=== PATIENT | male | born 1945 | race Caucasian/White ===

== ENCOUNTER 2016-07-13 03:51 | Inpatient (IN) | payer MEDICARE, OTHER ==
[2016-07-13] MEDS ORDERED: PANTOPRAZOLE 80 MG in SODIUM CHLORIDE 0.9% 100ML 100 ML IV STA (04:04)
[2016-07-13] MEDS ORDERED: ONDANSETRON 4 MG/2 ML VIAL IVP STA (04:04)
[2016-07-13] MEDS ORDERED: SODIUM CHLORIDE 0.9% 1,000 ML IV ONE ×2 (04:04→12:15)
[2016-07-13] MEDS ORDERED: PANTOPRAZOLE 40 MG VIAL IVP STA (04:05)
[2016-07-13] MEDS ORDERED: ONDANSETRON 4 MG/2 ML VIAL ONE ×2 (04:29→04:43)
[2016-07-13] MEDS ORDERED: PANTOPRAZOLE 40 MG VIAL ONE (04:29)
[2016-07-13] MEDS ORDERED: SODIUM CHLORIDE FLUSH 0.9% 10 ML SYRINGE IVP PRN (05:29)
[2016-07-13] MEDS: SODIUM CHLORIDE 0.9% 1,000 ML IV SCH ×2 (08:35→17:34)
[2016-07-13] MEDS ORDERED: PANTOPRAZOLE 80 MG in SODIUM CHLORIDE 0.9% 100ML 100 ML IV ONE (09:00)
[2016-07-13] MEDS: POLYETHYLENE GLYCOL 3350 17 GM PACKET PO SCH (11:07)
[2016-07-13] MEDS: SODIUM CHLORIDE FLUSH 0.9% 10 ML SYRINGE IVP SCH ×3 (11:07→22:06)
[2016-07-13] MEDS ORDERED: PROPOFOL 200 MG/20 ML VIAL IVP ONE (12:20)
[2016-07-13] MEDS ORDERED: LIDOCAINE-MPF 2% 5 ML VIAL IM ONE (12:20)
[2016-07-13] MEDS ORDERED: BENZOCAINE/TETRACAINE/BUTAMBEN SPRAY 56 GM TOP ONE (12:25)
[2016-07-13] MEDS: PANTOPRAZOLE 80 MG in SODIUM CHLORIDE 0.9% 100ML 100 ML IV SCH (18:43)
[2016-07-13] MEDS ORDERED: GLUCAGON 1 MG/ML VIAL SUBQ PRN (19:52)
[2016-07-13] MEDS ORDERED: DEXTROSE GEL 37.5 GM TUBE PO PRN (19:52)
[2016-07-13] MEDS ORDERED: DEXTROSE 50% ABBOJECT 25 GM/50 ML SYRINGE IVP PRN (19:52)
[2016-07-13] MEDS ORDERED: DEXTROSE 5% 1,000 ML IV PRN (19:52)
[2016-07-13] MEDS: SUCRALFATE 1 GM/10 ML UDC PO SCH (22:06)
[2016-07-13] MEDS: INSULIN ASPART 300 UNIT/3 ML PEN SUBQ SCH (22:09)
[2016-07-14] MEDS: PANTOPRAZOLE 80 MG in SODIUM CHLORIDE 0.9% 100ML 100 ML IV SCH ×2 (04:32→14:46)
[2016-07-14] MEDS: SUCRALFATE 1 GM/10 ML UDC PO SCH ×4 (06:03→21:08)
[2016-07-14] MEDS: SODIUM CHLORIDE FLUSH 0.9% 10 ML SYRINGE IVP SCH ×3 (06:04→21:10)
[2016-07-14] MEDS: INSULIN ASPART 300 UNIT/3 ML PEN SUBQ SCH ×4 (08:53→21:08)
[2016-07-14] MEDS: POLYETHYLENE GLYCOL 3350 17 GM PACKET PO SCH (08:53)
[2016-07-14] MEDS ORDERED: CYCLOBENZAPRINE 10 MG TABLET PO PRN (17:26)
[2016-07-14] MEDS ORDERED: OLOPATADINE HCL EACHEYE PRN (17:26)
[2016-07-14] MEDS ORDERED: ZOLPIDEM 5 MG TABLET PO PRN (17:26)
[2016-07-14] MEDS ORDERED: HYDROcod/ACETAM 7.5 MG/325 MG TABLET PO PRN (17:26)
[2016-07-14] MEDS ORDERED: PIOGLITAZONE 15 MG TABLET PO SCH (21:00)
[2016-07-14] MEDS ORDERED: SUCRALFATE 1 GM/10 ML UDC PO SCH (22:00)
[2016-07-15] MEDS: SODIUM CHLORIDE FLUSH 0.9% 10 ML SYRINGE IVP SCH ×2 (04:43→13:11)
[2016-07-15] MEDS: PANTOPRAZOLE 80 MG in SODIUM CHLORIDE 0.9% 100ML 100 ML IV SCH (06:10)
[2016-07-15] MEDS: SUCRALFATE 1 GM/10 ML UDC PO SCH ×3 (06:10→17:16)
[2016-07-15] MEDS: POLYETHYLENE GLYCOL 3350 17 GM PACKET PO SCH (08:44)
[2016-07-15] MEDS: INSULIN ASPART 300 UNIT/3 ML PEN SUBQ SCH ×3 (08:45→17:17)
[2016-07-15] MEDS ORDERED: LISINOPRIL 5 MG TABLET PO SCH (09:00)
[2016-07-15] MEDS ORDERED: TAMSULOSIN 0.4 MG CAPSULE PO SCH (09:00)
[2016-07-15] MEDS ORDERED: PANTOPRAZOLE 40 MG TABLET PO SCH (16:00)
== END 2016-07-15 20:10 | disposition home or self-care (01) | DRG 378 ==
PROC: 0DB68ZX Excision of Stomach, Via Natural or Artificial Opening Endoscopic, Diagnostic (ICD-10-PCS; principal; 2016-07-13 12:15)
PROC: 30233L1 Transfusion of Nonautologous Fresh Plasma into Peripheral Vein, Percutaneous Approach (ICD-10-PCS; principal; 2016-07-13 12:15)
PROC: 30233N1 Transfusion of Nonautologous Red Blood Cells into Peripheral Vein, Percutaneous Approach (ICD-10-PCS; principal; 2016-07-13 12:15)
DX: K92.0 Hematemesis (principal); K29.61 Other gastritis with bleeding; D62 Acute posthemorrhagic anemia; Z87.442 Personal history of urinary calculi; H54.7 Unspecified visual loss; H91.90 Unspecified hearing loss, unspecified ear; K44.9 Diaphragmatic hernia without obstruction or gangrene; I10 Essential (primary) hypertension; E11.9 Type 2 diabetes mellitus without complications; Z79.84 Long term (current) use of oral hypoglycemic drugs; M16.11 Unilateral primary osteoarthritis, right hip; Z87.11 Personal history of peptic ulcer disease; I95.9 Hypotension, unspecified; T39.395A Adverse effect of other nonsteroidal anti-inflammatory drugs [NSAID], initial encounter; T39.015A Adverse effect of aspirin, initial encounter; T47.1X6A Underdosing of other antacids and anti-gastric-secretion drugs, initial encounter; Z91.138 Patient's unintentional underdosing of medication regimen for other reason; Y92.9 Unspecified place or not applicable; Z79.82 Long term (current) use of aspirin; Z79.899 Other long term (current) drug therapy; Z87.891 Personal history of nicotine dependence

== ENCOUNTER 2016-10-23 08:00 | Outpatient (CLI) | payer MEDICARE, OTHER ==
[2016-10-23 18:08] LABS: ALBUMIN/GLOBULIN RATIO 1.3 (1.0-2.2); BASOPHILS % (AUTO) 0.5 %; BILIRUBIN,TOTAL 0.6 mg/dL (0.2-1.0); BUN - BLOOD UREA NITROGEN 18 mg/dL (6-20); CALCIUM 9.1 mg/dL (8.5-10.3); CARBON DIOXIDE - CO2 27 mmol/L (21-32); CHLORIDE 106 mmol/L (101-111); CHOL/HDL RATIO 2.9 (<5.0); CHOLESTEROL 150 mg/dL; CREATININE 1.3 mg/dL (0.6-1.2); EOSINOPHILS # (AUTO) 0.1 10^3/uL (0.0-0.7); GFR - MDRD 54 (>89); GLUCOSE 104 mg/dL (70-100); HCT - HEMATOCRIT 35.3 % (42.0-52.0); HDL CHOLESTEROL 51 mg/dL; HGB - HEMOGLOBIN 11.7 g/dL (14.0-18.0); LDL/HDL RATIO 1.5 (<3.6); LYMPHOCYTES # (AUTO) 0.8 10^3/uL (1.5-3.5); LYMPHOCYTES % (AUTO) 19.7 %; MEAN CORPUSCULAR HEMOGLOBIN 30.1 pg (27.0-31.0); MEAN CORPUSCULAR HGB CONC 33.2 g/dL (32.0-36.0); MEAN CORPUSCULAR VOLUME 90.8 fL (80.0-94.0); MEAN PLATELET VOLUME 9.1 fL (7.4-11.4); MONOCYTES # (AUTO) 0.4 10^3/uL (0.0-1.0); MONOCYTES % (AUTO) 9.3 %; NEUTROPHILS # (AUTO) 2.8 10^3/uL (1.5-6.6); NEUTROPHILS % (AUTO) 68.5 %; NUCLEATED RED BLOOD CELLS AUTO 0.1 /100WBC; POTASSIUM 4.1 mmol/L (3.5-5.0); RED BLOOD COUNT 3.88 10^6/uL (4.70-6.10); RED CELL DISTRIBUTION WIDTH 23.5 % (12.0-15.0); SODIUM 139 mmol/L (135-145); TOTAL PROTEIN 6.9 g/dL (6.7-8.2); TRIGLYCERIDES 104 mg/dL; UNCORRECTED WHITE BLOOD COUNT 4.1 x10^3/uL; VLDL CHOLESTEROL 21 mg/dL; WHITE BLOOD COUNT 4.1 x10^3/uL (4.8-10.8)
[2016-10-23 18:35] LABS: HEMOGLOBIN A1C 0.39 g/dL
[2016-10-23 18:45] LABS: PLATELET ESTIMATE, MANUAL DECREASED (<130,000) (NORMAL)
== END 2016-10-23 08:01 | disposition home or self-care (01) ==
LOC: LAB.F 08:00
PROVIDERS: ATTEND Internal Medicine
DX: K25.0 Acute gastric ulcer with hemorrhage (principal); D62 Acute posthemorrhagic anemia
CPT/HCPCS: 36415; 80053; 80061; 83036; 84443; 85025

== ENCOUNTER 2018-03-24 15:11 | Outpatient (CLI) | payer MEDICARE, OTHER ==
--- NOTE | 2018-03-25 09:12 | XRAY Report ---
Reason: CHRONIC R HIP PAIN, NO TRAUMA Procedure Date: 03/24/2018 Accession Number: [id number] / [id number] Procedure: XR - Hip w/Pelvis 2-3V RT CPT Code: FULL RESULT: EXAM: RIGHT HIP AND PELVIS RADIOGRAPHY EXAM DATE: 03/24/2018 03:44 PM. HISTORY: CHRONIC R HIP PAIN, NO TRAUMA. COMPARISONS: Abdomen pelvis CT 06/13/2015. TECHNIQUE: 1 view of the pelvis and 1 view of the hip. FINDINGS: Bones: No fracture or bone lesion. Joints: There are mild osteophytes of the superior acetabula. No joint space narrowing. Soft Tissues: Vascular calcifications are noted. IMPRESSION: Mild bilateral hip osteoarthritis RADIA
== END 2018-03-24 15:12 | disposition home or self-care (01) ==
LOC: DI 15:11
PROVIDERS: ATTEND Family Medicine
DX: M16.0 Bilateral primary osteoarthritis of hip (principal)

== ENCOUNTER 2018-05-01 18:21 | Outpatient (CLI) | payer MEDICARE, OTHER ==
--- NOTE | 2018-05-02 07:29 | XRAY Report ---
Reason: NEW WHEEZING Procedure Date: 05/01/2018 Accession Number: [id number] / [id number] Procedure: XR - Chest 2 View X-Ray CPT Code: 66191 FULL RESULT: EXAM: CHEST RADIOGRAPHY EXAM DATE: 05/01/2018 06:50 PM. CLINICAL HISTORY: NEW WHEEZING. COMPARISON: None. TECHNIQUE: 2 views. FINDINGS: Lungs/Pleura: No focal opacities evident. No pleural effusion. No pneumothorax. Normal volumes. Mediastinum: Heart and mediastinal contours are unremarkable. IMPRESSION: No evidence of active pulmonary process RADIA
== END 2018-05-01 18:22 | disposition home or self-care (01) ==
LOC: DI 18:21
PROVIDERS: ATTEND Internal Medicine
DX: R06.2 Wheezing (principal)
CPT/HCPCS: 71046

== ENCOUNTER 2018-12-09 13:26 | Emergency (ER) | payer MEDICARE, OTHER ==
--- NOTE | 2018-12-09 14:07 | ED Physician Documentation ---
History of Present Illness - Stated complaint Stated Complaint: HEADACHE - Chief complaint Chief Complaint: Neuro - Additonal information Additional information: This is a 73-year-old male with a history of hypertension, diabetes, who presen ts with a headache for 5 days as well as some generalized fatigue. Patient began having a mild frontal headache 5 days ago associated with green nasal drainage and sinus pressure, this has continued and now radiates back posteriorly toward the scalp. He also has felt some generalized weakness, but denies any focal weakness, numbness, tingling, or new vision change. Patient denies fever, cough, chest pain, or shortness of breath. No abdominal pain, no vomiting. He has felt slightly nauseated at times. He has continued to eat, but less than usual. He typically does not get headaches. The pain is currently a 4 out of 10 constant and dull.It was gradual in onset. Review of Systems Constitutional: denies: Fever Nose: reports: Rhinorrhea / runny nose, Sinus pressure / pain Throat: denies: Sore throat Cardiac: denies: Chest pain / pressure Respiratory: denies: Dyspnea GI: reports: Nausea. denies: Abdominal Pain : denies: Dysuria Skin: denies: Rash Musculoskeletal: denies: Neck pain Neurologic: reports: Generalized weakness Endocrine: reports: Other (+ for diabetes) PD PAST MEDICAL HISTORY - Past Medical History Cardiovascular: Hypertension Respiratory: None Endocrine/Autoimmune: Type 2 diabetes GI: Other : Kidney stones HEENT: Chronic vision loss, Chronic hearing loss, Other Psych: None Musculoskeletal: None Derm: Eczema - Past Surgical History Past Surgical History: Yes General: Colonoscopy Ortho: Other HEENT: Cataracts, Detached retina repair - Present Medications Home Medications: Ambulatory Orders Medication Instructions Recorded Confirmed RX: Lisinopril 5 mg PO DAILY 12/23/13 07/13/16 RX: Simvastatin 20 mg PO DAILY 12/23/13 07/13/16 RX: Tamsulosin [Flomax] 0.4 mg PO DAILY 06/13/15 07/13/16 RX: L.acidoph/L.rhamn/B.bif/B.long 12.9 mg PO DAILY 06/28/15 07/13/16 [Probiotic Acidophilus Biobeads] RX: Potassium Gluconate 90 mg PO DAILY 06/28/15 07/13/16 RX: Atenolol 50 mg PO DAILY 09/19/15 07/14/16 RX: Cyclobenzaprine [Flexeril] 10 mg PO TID PRN 07/13/16 07/13/16 RX: Hydrocodone/Acetaminophen 0.5 - 1 tab PO Q6H PRN 07/13/16 07/13/16 [Hydrocodone-Acetamin 7.5-325] RX: Metformin HCl [Metformin ER 500 mg PO DAILY PM 07/13/16 07/13/16 Osmotic] RX: Metformin HCl [Metformin HCl 1,000 mg PO DAILY 07/13/16 07/13/16 ER] RX: Olopatadine HCl [Patanol] 5 ml OP PRN PRN 07/13/16 07/13/16 RX: Pioglitazone [Actos] 30 mg PO BID 07/13/16 07/14/16 RX: Polyethylene Glycol 3350 17 gm PO DAILY 07/13/16 07/13/16 [Glycolax] RX: Zolpidem [Ambien] 5 - 10 mg PO HS PRN 07/13/16 07/13/16 RX: Pantoprazole [Protonix] 40 mg PO BIDAC #60 tablet 07/15/16 RX: Sucralfate 1 gm PO TIDWM #90 tablet 07/15/16 Amox/Clav 875/125 [Augmentin] 1 each PO Q12H #28 tablet 12/09/18 RX: Acetaminophen 650 mg PO Q6HR #30 tablet 12/09/18 - Allergies Allergies/Adverse Reactions: Allergies Allergy/AdvReac Type Severity Reaction Status Date / Time No Known Drug Allergies Allergy Verified 06/28/15 08:39 - Social History Does the pt smoke?: No Smoking Status: Never smoker Does the pt drink ETOH?: No Does the pt have substance abuse?: No - Immunizations Immunizations are current?: Yes PD ED PE NORMAL - Vitals Vital signs reviewed: Yes - General General: Alert and oriented X 3, No acute distress - HEENT HEENT: Atraumatic, PERRL, Other (Mild facial tenderness near the midline maxillary region. No erythema or lesions. Green mucopurulent nasal drainage) - Neck Neck: Supple, no meningeal sign - Cardiac Cardiac: No murmur - Respiratory Respiratory: Clear bilaterally - Abdomen Abdomen: Normal bowel sounds, Soft, Non tender - Derm Derm: Warm and dry - Extremities Extremities: No deformity - Neuro Neuro: Alert and oriented X 3, machine cage maker 2-12 intact, No motor deficit, No sensory deficit, Normal speech - Psych Psych: Normal mood, Normal affect Results - Vitals Vitals: Vital Signs - 24 hr 12/09/18 12/09/18 12/09/18 13:29 14:02 17:06 Temperature 36.5 C 36.8 C Heart Rate 55 L 55 L 54 L Respiratory 18 16 20 Rate Blood Pressure 154/72 H 166/76 H 141/68 H O2 Saturation 97 97 98 Oxygen O2 Source Room air - Labs Labs: Laboratory Tests 12/09/18 12/09/18 12/09/18 08:16 15:28 15:28 WBC 6.0 RBC 3.99 L Hgb 12.8 L Hct 38.6 L MCV 96.7 H MCH 32.1 H MCHC 33.2 RDW 12.3 Plt Count 135 MPV 10.7 Neut # (Auto) 4.8 Lymph # (Auto) 0.6 L Banks # (Auto) 0.6 Eos # (Auto) 0.0 Baso # (Auto) 0.0 Absolute Nucleated RBC 0.00 Nucleated RBC % 0.0 PT 12.0 INR 1.1 Sodium 139 Potassium 3.9 Chloride 104 Carbon Dioxide 24 Anion Gap 11.0 BUN 10 Creatinine 1.0 Estimated GFR (MDRD) 73 L Glucose 132 H Calcium 9.1 Total Bilirubin 0.8 AST 13 ALT 10 Alkaline Phosphatase 59 Troponin I Troponin I High Sens Total Protein 7.0 Albumin 3.5 Globulin 3.5 Albumin/Globulin Ratio 1.0 Lipase 34 Urine Color Urine Clarity Urine pH Ur Specific [place] Urine Protein Urine Glucose (UA) Urine Ketones Urine Occult Blood Urine Nitrite Urine Bilirubin Urine Urobilinogen Ur Leukocyte Esterase Ur Microscopic Review Urine Culture Comments 12/09/18 12/09/18 15:28 15:35 WBC RBC Hgb Hct MCV MCH MCHC RDW Plt Count MPV Neut # (Auto) Lymph # (Auto) Banks # (Auto) Eos # (Auto) Baso # (Auto) Absolute Nucleated RBC Nucleated RBC % PT INR Sodium Potassium Chloride Carbon Dioxide Anion Gap BUN Creatinine Estimated GFR (MDRD) Glucose Calcium Total Bilirubin AST ALT Alkaline Phosphatase Troponin I < 0.04 Troponin I High Sens 6.5 Total Protein Albumin Globulin Albumin/Globulin Ratio Lipase Urine Color YELLOW Urine Clarity CLEAR Urine pH 5.5 Ur Specific [place] <=1.005 Urine Protein NEGATIVE Urine Glucose (UA) NEGATIVE Urine Ketones NEGATIVE Urine Occult Blood TRACE-LYSE Urine Nitrite NEGATIVE Urine Bilirubin NEGATIVE Urine Urobilinogen 0.2 (NORMAL) Ur Leukocyte Esterase NEGATIVE Ur Microscopic Review NOT INDICATED Urine Culture Comments NOT INDICATED - Rads (name of study) CT head Radiology: Prelim report reviewed (Sphenoid sinusitis, no other acute intracranial abnormality) PD MEDICAL DECISION MAKING - ED course Complexity details: considered differential (Tension headache, migraine, sinus headache, acute sinusitis, subarachnoid hemorrhage/intracranial hemorrhage, URI) ED course: On exam, patient is nontoxic-appearing. He has mild bradycardia consistent with his atenolol use. He has no neurologic deficits. No chest pain, shortness of breath to suggest cardiopulmonary process. IV was inserted labs were drawn, CBC and CMP are unremarkable. Pt was given reglan and tylenol for symptoms. CT the head shows no bleed or mass, it does show sphenoid sinusitis. Given the patient has had copious nasal drainage, and has a dull, pressure-like headache, We will treat his sinusitis with a course of Augmentin. I highly doubt SAH/ICH given the gradual onset of his symptoms and association with copious nasal discharge. I discussed return precautions and PCP follow up. Pt agrees and was discharged in the care of his . Departure - Departure Disposition: 01 Home, Self Care Clinical Impression: Sinusitis Qualifiers: Sinusitis location: sphenoidal Chronicity: acute Recurrence: not specified as recurrent Qualified Code(s): J01.30 - Acute sphenoidal sinusitis, unspecified Condition: Good Instructions: ED Headache Sinus Follow-Up: Neel Alaniz MD [Primary Care Provider] - Within 1 week Prescriptions: RX: Acetaminophen 650 mg PO Q6HR #30 tablet Amox/Clav 875/125 [Augmentin] 1 each PO Q12H #28 tablet Comments: You were seen today for headache and nasal drainage, your CT of your head did not show any signs of bleeding or masses, it did show some sinusitis. We will treat you with antibiotics, please follow-up with your primary care provider. If you have worsening or new symptoms please return to the emergency department. Discharge Date/Time: 12/09/18 17:06
--- NOTE | 2018-12-09 15:17 | CT Report ---
Reason: Headache for 5 days Procedure Date: 12/09/2018 Accession Number: [id number] / [id number] Procedure: CT - HEAD WO CPT Code: FULL RESULT: EXAM: CT HEAD EXAM DATE: 12/09/2018 02:51 PM. CLINICAL HISTORY: Headache for 5 days. COMPARISON: None. TECHNIQUE: Multiaxial CT images were obtained from the foramen magnum to the vertex. Reformats: Sagittal and coronal. IV contrast: None. In accordance with CT protocol optimization, one or more of the following dose reduction techniques were utilized for this exam: automated exposure control, adjustment of mA and/or KV based on patient size, or use of iterative reconstructive technique. FINDINGS: Parenchyma: No intraparenchymal hemorrhage. No evidence of mass, midline shift, or CT findings of acute infarction. Soler-white differentiation is distinct. Diffuse chronic microangiopathic white matter changes are evident. Extraaxial Spaces: Normal for age. No subdural or epidural collections identified. Ventricles: The ventricles and cortical sulci are enlarged, consistent with age-related tissue loss. Sinuses and orbits: Previous lens extractions. Sphenoid sinus opacification. The sphenoid sinus bony leigh appear thickened. Minimal to mild ethmoid and maxillary mucosal thickening. Grossly clear mastoids. Bones: No evidence of fracture or calvarial defect. Other: Calcifications of the cavernous and paraclinoid ICA segments. IMPRESSION: Generalized age-related cortical atrophic changes without evidence of acute intracranial abnormality. Sphenoid sinusitis. Intracranial atherosclerosis. RADIA
[2018-12-09 15:42] LABS: BASOPHILS % (AUTO) 0.3 %; EOSINOPHILS % (AUTO) 0.5 %; HGB - HEMOGLOBIN 12.8 g/dL (14.0-18.0); LYMPHOCYTES # (AUTO) 0.6 10^3/uL (1.5-3.5); LYMPHOCYTES % (AUTO) 10.3 %; MEAN CORPUSCULAR HEMOGLOBIN 32.1 pg (27.0-31.0); MEAN CORPUSCULAR HGB CONC 33.2 g/dL (32.0-36.0); MEAN CORPUSCULAR VOLUME 96.7 fL (80.0-94.0); MEAN PLATELET VOLUME 10.7 fL (7.4-11.4); MONOCYTES # (AUTO) 0.6 10^3/uL (0.0-1.0); MONOCYTES % (AUTO) 9.5 %; NEUTROPHILS # (AUTO) 4.8 10^3/uL (1.5-6.6); NEUTROPHILS % (AUTO) 79.1 %; PLT - PLATELET COUNT 135 10^3/uL (130-450); RED BLOOD COUNT 3.99 10^6/uL (4.70-6.10); RED CELL DISTRIBUTION WIDTH 12.3 % (12.0-15.0)
[2018-12-09 15:43] LABS: INR 1.1 (0.8-1.2)
[2018-12-09 15:49] LABS: ALBUMIN 3.5 g/dL (3.2-5.5); BILIRUBIN,TOTAL 0.8 mg/dL (0.2-1.0); CALCIUM 9.1 mg/dL (8.5-10.3)
[2018-12-09 15:52] LABS: BILIRUBIN,URINE NEGATIVE (NEGATIVE); CLARITY,URINE CLEAR (CLEAR); GLUCOSE, URINE (UA) NEGATIVE (NEGATIVE); KETONES,URINE (UA) NEGATIVE (NEGATIVE); LEUKOCYTE ESTERASE, URINE NEGATIVE (NEGATIVE); NITRITE,URINE NEGATIVE (NEGATIVE); OCCULT BLOOD,URINE TRACE-LYSE (NEGATIVE); PH,URINE 5.5 PH (5.0-7.5); PROTEIN,URINE NEGATIVE (NEGATIVE); UROBILINOGEN,URINE 0.2 (NORMAL) E.U./dL (NORMAL)
[2018-12-09] MEDS ORDERED: ACETAMINOPHEN 325 MG TABLET PO STA (16:02)
[2018-12-09] MEDS ORDERED: METOCLOPRAMIDE 10 MG TABLET PO ONE (16:02)
[2018-12-09 16:25] LABS: TROPONIN I < 0.04 ng/mL (<0.49)
[2018-12-09] MEDS ORDERED: AMOX/CLAV 875 MG/125 MG TABLET PO STA (16:46)
[2018-12-09 17:08] VITALS: BP 141/68
== END 2018-12-09 17:06 | disposition home or self-care (01) ==
LOC: ED 13:26
DX: J01.30 Acute sphenoidal sinusitis, unspecified (principal); R53.83 Other fatigue; E11.9 Type 2 diabetes mellitus without complications; Z79.84 Long term (current) use of oral hypoglycemic drugs; I10 Essential (primary) hypertension
CPT/HCPCS: 36415; 70450; 80053; 81003; 83690; 84484; 85025; 85610; 99284; A9270; 81001; 87086

== ENCOUNTER 2019-04-16 15:19 | Emergency (ER) | payer MEDICARE, OTHER ==
[2019-04-16 15:34] VITALS: BP 114/56
--- NOTE | 2019-04-16 16:47 | XRAY Report ---
Reason: GLF foot pain Procedure Date: 04/16/2019 Accession Number: [id number] / [id number] Procedure: XR - Foot 3 View LT CPT Code: Final Report FULL RESULT: EXAM: LEFT FOOT RADIOGRAPHY EXAM DATE: 04/16/2019 04:38 PM. CLINICAL HISTORY: GLF foot pain. COMPARISON: None. TECHNIQUE: 3 views. FINDINGS: Bones: An acute displaced oblique nonarticular fracture through left fifth metatarsal noted. Joints: Normal. No subluxations. Soft Tissues: Moderate overlying soft tissue swelling, at the fracture site. IMPRESSION: An acute displaced oblique nonarticular fracture through left fifth metatarsal. Moderate overlying soft tissue swelling. No malalignment. RADIA
--- NOTE | 2019-04-16 16:56 | ED Physician Documentation ---
PD HPI LOWER EXT INJURY - Stated complaint Stated Complaint: LT FOOT INJURY - Chief complaint Chief Complaint: Ext Problem - History obtained from History obtained from: Patient - History of Present Illness PD HPI LOW EXT INJURY LOCATION: Left, Foot Type of injury: Fall Where injury occurred: Home Timing - onset: How many hours ago (8am) Timing - duration: Hours (8) Timing - details: Abrupt onset Pain level max: 7 Pain level now: 4 Improved by: Rest, Ice, Immobilization Worsened by: Moving, Palpating Associated symptoms: No: Weakness, Numbness, Tingling, Swelling Contributing factors: No: Anticoagulated, Prior ortho surgery Similar symptoms before: Has not had sx before Recently seen: Not recently seen - Additional information Additional information: Worse with walking and better with rest. Also states that his right hip hurt initially but this is no longer hurting. Review of Systems Constitutional: denies: Fever GI: denies: Vomiting Skin: denies: Rash Musculoskeletal: denies: Neck pain, Back pain Neurologic: denies: Headache PD PAST MEDICAL HISTORY - Past Medical History Cardiovascular: Hypertension Respiratory: None Endocrine/Autoimmune: Type 2 diabetes GI: Other : Kidney stones HEENT: Chronic vision loss, Chronic hearing loss, Other Psych: None Musculoskeletal: None Derm: Eczema - Past Surgical History Past Surgical History: Yes General: Colonoscopy Ortho: Other HEENT: Cataracts, Detached retina repair - Present Medications Home Medications: Ambulatory Orders Medication Instructions Recorded Confirmed Lisinopril 5 mg PO DAILY 12/23/13 07/13/16 Simvastatin 20 mg PO DAILY 12/23/13 07/13/16 Tamsulosin [Flomax] 0.4 mg PO DAILY 06/13/15 07/13/16 L.acidoph/L.rhamn/B.bif/B.long 12.9 mg PO DAILY 06/28/15 07/13/16 [Probiotic Acidophilus Biobeads] Potassium Gluconate 90 mg PO DAILY 06/28/15 07/13/16 Atenolol 50 mg PO DAILY 09/19/15 07/14/16 Cyclobenzaprine [Flexeril] 10 mg PO TID PRN 07/13/16 07/13/16 Hydrocodone/Acetaminophen 0.5 - 1 tab PO Q6H PRN 07/13/16 07/13/16 [Hydrocodone-Acetamin 7.5-325] Metformin HCl [Metformin ER 500 mg PO DAILY PM 07/13/16 07/13/16 Osmotic] Metformin HCl [Metformin HCl ER] 1,000 mg PO DAILY 07/13/16 07/13/16 Olopatadine HCl [Patanol] 5 ml OP PRN PRN 07/13/16 07/13/16 Pioglitazone [Actos] 30 mg PO BID 07/13/16 07/14/16 Polyethylene Glycol 3350 [Glycolax] 17 gm PO DAILY 07/13/16 07/13/16 Zolpidem [Ambien] 5 - 10 mg PO HS PRN 07/13/16 07/13/16 Pantoprazole [Protonix] 40 mg PO BIDAC #60 tablet 07/15/16 Sucralfate 1 gm PO TIDWM #90 tablet 07/15/16 Acetaminophen 650 mg PO Q6HR #30 tablet 12/09/18 Amox/Clav 875/125 [Augmentin] 1 each PO Q12H #28 tablet 12/09/18 Hydrocodone/Acetaminophen 1 - 2 each PO Q6H PRN #14 tablet 04/16/19 [Hydrocodon-Acetaminophen 5-325] - Allergies Allergies/Adverse Reactions: Allergies Allergy/AdvReac Type Severity Reaction Status Date / Time No Known Drug Allergies Allergy Verified 04/16/19 15:34 - Social History Does the pt smoke?: No Smoking Status: Never smoker Does the pt drink ETOH?: No Does the pt have substance abuse?: No - Immunizations Immunizations are current?: Yes PD ED PE NORMAL - Vitals Vital signs reviewed: Yes - General General: Alert and oriented X 3, No acute distress, Well developed/nourished - HEENT HEENT: Atraumatic, PERRL, Moist mucous membranes - Neck Neck: Supple, no meningeal sign, No bony TTP - Cardiac Cardiac: RRR, Strong equal pulses - Respiratory Respiratory: No respiratory distress, Clear bilaterally - Abdomen Abdomen: Soft, Non tender, Non distended - Back Back: No spinal TTP (This step-off or deformity.) - Derm Derm: Warm and dry - Extremities Extremities: Other (Full range of motion of both hips without pain. No tenderness. Neurovascular intact. He has tender palpation over the lateral aspect of the fifth foot. Mild bruising and swelling.) - Neuro Neuro: Alert and oriented X 3 - Psych Psych: Normal mood, Normal affect Results - Vitals Vitals: Vital Signs - 24 hr 04/16/19 15:25 Temperature 36.3 C L Heart Rate 52 L Respiratory 18 Rate Blood Pressure 114/56 L O2 Saturation 98 Oxygen O2 Source Room air - Rads (name of study) L foot xray Radiology: Prelim report reviewed, EMP read contemporaneously, See rad report (Oblique fracture of the left fifth metatarsal) PD MEDICAL DECISION MAKING - ED course Complexity details: reviewed results, re-evaluated patient, considered differential, d/w patient, d/w family ED course: Patient presents the emergency department after a fall earlier today. Has been ambulating at home. He has a left fifth metatarsal fracture. Discussed the case with Dr. Pan, orthopedics who reviewed the x-rays as well. Given this patient's age, nonweightbearing will be difficult, and therefore we placed him in a walking boot. He will follow-up with orthopedics for further care. Neurovascular intact. No evidence of hip fracture. Ambulating well. patient and family counseled regarding signs and symptoms for which I believe and urgent re-evaluation would be necessary. Patient with good understanding of and agreement to plan and is comfortable going home at this time This document was made in part using voice recognition software. While efforts are made to proofread this document, sound alike and grammatical errors may occur. Departure - Departure Disposition: 01 Home, Self Care Clinical Impression: Fracture of fifth metatarsal bone Qualifiers: Encounter type: initial encounter Fracture type: closed Physeal involvement: unspecified Laterality: left Qualified Code(s): S92.352A - Displaced fracture of fifth metatarsal bone, left foot, initial encounter for closed fracture Condition: Good Instructions: ED Fx Foot Follow-Up: Neel Alaniz MD [Primary Care Provider] - [facility] [Provider Group] - Within 1 week Prescriptions: Hydrocodone/Acetaminophen [Hydrocodon-Acetaminophen 5-325] 1 - 2 each PO Q6H PRN #14 tablet PRN Reason: pain Comments: Wear the boot until released by orthopedics. I discussed the case with Dr. Pan today. Do not drink alcohol or drive while on narcotic pain medicine. Note that many narcotic pain relievers also contain tylenol/acetaminophen. Please ensure that your total dose of acetaminophen from all sources does not exceed 3 grams (3000mg) per day. You may constipated on this medication, take a stool softener such as "Colace" twice a day while you are on it. Also recommend a aflp-qok-jdrhtek laxative such as senna or MiraLAX any day that you do not have a bowel movement. If you received narcotic pain medication in the emergency department, do not drive or operate machinery for the next 24 hours. Discharge Date/Time: 04/16/19 17:42
== END 2019-04-16 17:42 | disposition home or self-care (01) ==
LOC: ED 15:19
DX: S92.352A Displaced fracture of fifth metatarsal bone, left foot, initial encounter for closed fracture (principal); W18.30XA Fall on same level, unspecified, initial encounter; Y92.009 Unspecified place in unspecified non-institutional (private) residence as the place of occurrence of the external cause; I10 Essential (primary) hypertension; E11.9 Type 2 diabetes mellitus without complications; Z79.84 Long term (current) use of oral hypoglycemic drugs
CPT/HCPCS: 99283; 99284

== ENCOUNTER 2022-12-01 19:40 | Emergency (ER) | payer MEDICARE, OTHER ==
[2022-12-01 19:53] VITALS: BP 105/52
[2022-12-01] MEDS ORDERED: BUFFERED LIDOCAINE 10 ML SYRINGE SUBQ STA (19:53)
--- NOTE | 2022-12-01 21:20 | ED Physician Documentation ---
PD HPI SKIN - Stated complaint Stated Complaint: LUMP NECK - Chief complaint Chief Complaint: General - History obtained from History obtained from: Patient - Additional information Additional information: 12day growing lump on R neck. Had US 1 week ago but states he never got the results. Now becoming painful. Review of Systems Constitutional: denies: Fever, Chills Ears: denies: Ear pain Throat: denies: Dental pain / toothache, Oral lesions / sores, Sore throat, Swollen tonsils, Swallowed foreign body PD PAST MEDICAL HISTORY - Past Medical History Cardiovascular: Hypertension Respiratory: None Endocrine/Autoimmune: Type 2 diabetes GI: Other : Kidney stones HEENT: Chronic vision loss, Chronic hearing loss, Other Psych: None Musculoskeletal: None Derm: Eczema - Past Surgical History Past Surgical History: Yes General: Colonoscopy Ortho: Other HEENT: Cataracts, Detached retina repair - Present Medications Home Medications: Ambulatory Orders Medication Instructions Recorded Confirmed Simvastatin 20 mg PO DAILY 12/23/13 07/13/16 lisinopriL [Lisinopril] 5 mg PO DAILY 12/23/13 07/13/16 Tamsulosin [Flomax] 0.4 mg PO DAILY 06/13/15 07/13/16 L.acidoph/L.rhamn/B.bif/B.long 12.9 mg PO DAILY 06/28/15 07/13/16 [Probiotic Acidophilus Biobeads] Potassium Gluconate 90 mg PO DAILY 06/28/15 07/13/16 Atenolol 50 mg PO DAILY 09/19/15 07/14/16 Cyclobenzaprine [Flexeril] 10 mg PO TID PRN 07/13/16 07/13/16 Hydrocodone/Acetaminophen 0.5 - 1 tab PO Q6H PRN 07/13/16 07/13/16 [Hydrocodone-Acetamin 7.5-325] Metformin HCl [Metformin ER 500 mg PO DAILY PM 07/13/16 07/13/16 Osmotic] Metformin HCl [Metformin HCl ER] 1,000 mg PO DAILY 07/13/16 07/13/16 Olopatadine HCl [Patanol] 5 ml OP PRN PRN 07/13/16 07/13/16 Pioglitazone [Actos] 30 mg PO BID 07/13/16 07/14/16 Zolpidem [Ambien] 5 - 10 mg PO HS PRN 07/13/16 07/13/16 polyethylene glycoL 3350 [Glycolax] 17 gm PO DAILY 07/13/16 07/13/16 Pantoprazole [Protonix] 40 mg PO BIDAC #60 tablet 07/15/16 Sucralfate 1 gm PO TIDWM #90 tablet 07/15/16 Acetaminophen 650 mg PO Q6HR #30 tablet 12/09/18 Amox/Clav 875/125 [Augmentin] 1 each PO Q12H #28 tablet 12/09/18 Hydrocodone/Acetaminophen 1 - 2 each PO Q6H PRN #14 tablet 04/16/19 [Hydrocodon-Acetaminophen 5-325] cephALEXin [Keflex] 500 mg PO Q6H #28 cap 12/01/22 - Allergies Allergies/Adverse Reactions: Allergies Allergy/AdvReac Type Severity Reaction Status Date / Time No Known Drug Allergies Allergy Verified 12/01/22 19:43 - Social History Does the pt smoke?: No Smoking Status: Never smoker Does the pt drink ETOH?: No Does the pt have substance abuse?: No - Immunizations Immunizations are current?: Yes - POLST Patient has POLST: No PD ED PE NORMAL - Vitals Vital signs reviewed: Yes - General General: Alert and oriented X 3, No acute distress, Well developed/nourished - Neck Neck: Supple, no meningeal sign, Other (2cm round raised lesion. Tender to touch, fluctuant) - Cardiac Cardiac: RRR - Respiratory Respiratory: No respiratory distress, Clear bilaterally - Derm Derm: Warm and dry, No rash - Neuro Neuro: Alert and oriented X 3, non destructive evaluation technician 2-12 intact, No motor deficit, Normal speech Results - Vitals Vitals: Vital Signs - 24 hr 12/01/22 19:43 Temperature 36.5 C Heart Rate 73 Respiratory 16 Rate Blood Pressure 105/52 L O2 Saturation 97 Oxygen O2 Source Room air Procedures - Abscess I&D (location) Neck right Lateral Preparation: Confirmed with ultrasound, Chlorhexadine, Lidocaine 1% Incision: Incised with scalpel, Purulent drainage, Loculations broken, Irrigated Other: Pt tolerated well, Dressing applied, Antibiotic prescribed PD Medical Decision Making - ED course Complexity details: reviewed results, re-evaluated patient, considered differential, d/w patient ED course: Growing lump on side of neck that has now become painful. Ultrasound confirmed cystic appearance of area. Wound was incised per procedure notes, dressing applied. As I was unable to fully remove the contents of the cystic sac I will discharge the patient on antibiotics. Additional supplies for dressing changes provided to the patient. He states that he actually has an upcoming appointment with his electric plater and will mention the cystic area during follow-up. Wound care instructions discussed at bedside. ED return precautions discussed. Departure - Departure Disposition: 01 Home, Self Care Clinical Impression: Epidermal cyst of neck Condition: Stable Instructions: Cyst Epidermoid Prescriptions: cephALEXin [Keflex] 500 mg PO Q6H #28 cap Forms: PCP List Discharge Date/Time: 12/01/22 21:50
--- NOTE | 2022-12-01 21:48 | Ultrasound Report ---
PROCEDURE: Head or Neck Soft Tissue INDICATIONS: NECK MASS TECHNIQUE: Real-time scanning was performed of the thyroid gland, with image documentation. COMPARISON: None FINDINGS: Sonographic images at the area of concern in the posterior right neck demonstrates complex focus of e chogenicity with increased vascularity measuring 1.9 x 1.7 x 1.7 cm. It is located approximately 4 mm from the skin surface. It demonstrates a more hypoechoic focus within the central portion. IMPRESSION: Complex mass within the subcutaneous tissues as above. This could represent a sebaceous cyst or area of infection/inflammation such as phlegmon/abscess. Reviewed by: Ying Godoy MD on 12/01/2022 9:47 PM PDT Approved by: Ying Godoy MD on 12/01/2022 9:47 PM PDT Station ID: [id number]
== END 2022-12-01 21:50 | disposition home or self-care (01) ==
LOC: ED 19:40
DX: L72.8 Other follicular cysts of the skin and subcutaneous tissue (principal); I10 Essential (primary) hypertension; E11.9 Type 2 diabetes mellitus without complications; Z79.899 Other long term (current) drug therapy; Z79.84 Long term (current) use of oral hypoglycemic drugs
CPT/HCPCS: 10060

== ENCOUNTER 2024-01-01 10:52 | Emergency (ER) | payer MEDICARE, OTHER ==
--- NOTE | 2024-01-01 11:14 | ED Physician Documentation ---
PD HPI MALE - Stated complaint Stated Complaint: - Chief complaint Chief Complaint: General - History obtained from History obtained from: Patient - History of Present Illness Timing - onset: How many days ago (2-3) Timing - duration: Days (2-3) Timing - details: Gradual onset, Still present Associated symptoms: Dysuria, Urinary frequency. No: Hematuria, Discharge PD HPI MALE CONTRIB FACTORS: Not sexually active (his with uti symptoms for the past few days consistently but intermittent for 2-3 weeks. No discharge for either of them. No sexual ocntact for "long time".) Similar symptoms before: Has not had sx before Review of Systems Constitutional: denies: Fever, Chills GI: denies: Abdominal Pain Skin: denies: Rash Musculoskeletal: denies: Back pain PD PAST MEDICAL HISTORY - Past Medical History Past Medical History: Yes Cardiovascular: Hypertension Respiratory: None Neuro: None Endocrine/Autoimmune: Type 2 diabetes GI: Other : Kidney stones HEENT: Chronic vision loss, Chronic hearing loss, Other Psych: None Musculoskeletal: None Derm: Eczema - Past Surgical History Past Surgical History: Yes General: Colonoscopy Ortho: Other HEENT: Cataracts, Detached retina repair - Present Medications Home Medications: Ambulatory Orders Medication Instructions Recorded Confirmed Simvastatin 20 mg PO DAILY 12/23/13 07/13/16 lisinopriL [Lisinopril] 5 mg PO DAILY 12/23/13 07/13/16 Tamsulosin [Flomax] 0.4 mg PO DAILY 06/13/15 07/13/16 L.acidoph/L.rhamn/B.bif/B.long 12.9 mg PO DAILY 06/28/15 07/13/16 [Probiotic Acidophilus Biobeads] Potassium Gluconate 90 mg PO DAILY 06/28/15 07/13/16 Atenolol 50 mg PO DAILY 09/19/15 07/14/16 Cyclobenzaprine [Flexeril] 10 mg PO TID PRN 07/13/16 07/13/16 Hydrocodone/Acetaminophen 0.5 - 1 tab PO Q6H PRN 07/13/16 07/13/16 [Hydrocodone-Acetamin 7.5-325] Metformin HCl [Metformin ER 500 mg PO DAILY PM 07/13/16 07/13/16 Osmotic] Metformin HCl [Metformin HCl ER] 1,000 mg PO DAILY 07/13/16 07/13/16 Olopatadine HCl [Patanol] 5 ml OP PRN PRN 07/13/16 07/13/16 Pioglitazone [Actos] 30 mg PO BID 07/13/16 07/14/16 Zolpidem [Ambien] 5 - 10 mg PO HS PRN 07/13/16 07/13/16 polyethylene glycoL 3350 [Glycolax] 17 gm PO DAILY 07/13/16 07/13/16 Pantoprazole [Protonix] 40 mg PO BIDAC #60 tablet 07/15/16 Sucralfate 1 gm PO TIDWM #90 tablet 07/15/16 Acetaminophen 650 mg PO Q6HR #30 tablet 12/09/18 Amox/Clav 875/125 [Augmentin] 1 each PO Q12H #28 tablet 12/09/18 Hydrocodone/Acetaminophen 1 - 2 each PO Q6H PRN #14 tablet 04/16/19 [Hydrocodon-Acetaminophen 5-325] cephALEXin [Keflex] 500 mg PO Q6H #28 cap 12/01/22 Phenazopyridine HCl [Pyridium] 100 mg PO TID PRN #15 tablet 01/01/24 cephALEXin [Keflex] 500 mg PO TID #20 cap 01/01/24 - Allergies Allergies/Adverse Reactions: Allergies Allergy/AdvReac Type Severity Reaction Status Date / Time No Known Drug Allergies Allergy Verified 01/01/24 11:07 - Social History Does the pt smoke?: No Smoking Status: Former smoker Does the pt drink ETOH?: No Does the pt have substance abuse?: No - Immunizations Immunizations are current?: Yes - POLST Patient has POLST: No PD ED PE NORMAL - Vitals Vital signs reviewed: Yes - General General: Alert and oriented X 3, No acute distress, Well developed/nourished - Abdomen Abdomen: Soft, Non tender, Non distended - Male Male : Deferred Results - Vitals Vitals: Vital Signs - 24 hr 01/01/24 01/01/24 11:07 12:52 Temperature 36.3 C L 36.4 C L Heart Rate 60 62 Respiratory 18 16 Rate Blood Pressure 124/79 120/76 O2 Saturation 97 99 Oxygen O2 Source Room air - Labs Labs: Laboratory Tests 01/01/24 11:15 Urine Color YELLOW Urine Clarity CLEAR Urine pH 5.5 Ur Specific [place] 1.025 Urine Protein NEGATIVE Urine Glucose (UA) NEGATIVE Urine Ketones NEGATIVE Urine Occult Blood NEGATIVE Urine Nitrite NEGATIVE Urine Bilirubin NEGATIVE Urine Urobilinogen 0.2 (NORMAL) Ur Leukocyte Esterase NEGATIVE Ur Microscopic Review NOT INDICATED Urine Culture Comments NOT INDICATED PD Medical Decision Making - ED course Complexity details: reviewed results (Urinalysis does not have findings consistent with UTI but his bladder scanner is only 27 and unlikely to have other causes for the dysuria (he states he and his are nonsexually active etc.). As such I will treat him for UTI despite a bland UA UA.), considered differential (The patient is having frequency and dysuria. Denies external rash or sores. He does feel that he is emptying but has to go again within 15 to 20 minutes.), d/w patient Departure - Departure Disposition: 01 Home, Self Care Clinical Impression: Dysuria Condition: Stable Record reviewed to determine appropriate education?: Yes Instructions: ED Dysuria Uncertain Cause, ED UTI Cystitis Male Follow-Up: Cj Naidu MD [Primary Care Provider] - Prescriptions: cephALEXin [Keflex] 500 mg PO TID #20 cap Phenazopyridine HCl [Pyridium] 100 mg PO TID PRN #15 tablet PRN Reason: Abdominal Pain Comments: You had very minimal left in the bladder on bladder scan. Actually it is even less and is commonly found suggesting your frequency and need for urination is more irritative and spasming. Your urinalysis does not look like signs of infection but your symptoms would should be suggestive of it. As such I would treat it with an antibiotic presuming an bladder infection and also phenazopyridine to help with the urinary discomfort so there is less signaling of needing to urinate. I would anticipate improvement in symptoms over the next few days. We will do a urine culture and we will call you if we need to change the antibiotic choice based on that. Follow-up with your primary care or return to the ER if not improving well over the next few days and sooner if worse. I sent your prescriptions to [facility] in [place]. Forms: PCP List Discharge Date/Time: 01/01/24 12:53
[2024-01-01 11:43] LABS: BILIRUBIN,URINE NEGATIVE (NEGATIVE); GLUCOSE, URINE (UA) NEGATIVE (NEGATIVE); KETONES,URINE (UA) NEGATIVE (NEGATIVE); LEUKOCYTE ESTERASE, URINE NEGATIVE (NEGATIVE); NITRITE,URINE NEGATIVE (NEGATIVE); OCCULT BLOOD,URINE NEGATIVE (NEGATIVE); PH,URINE 5.5 PH (5.0-7.5); PROTEIN,URINE NEGATIVE (NEGATIVE); UROBILINOGEN,URINE 0.2 (NORMAL) E.U./dL (NORMAL)
[2024-01-01 11:46] LABS: CLARITY,URINE CLEAR (CLEAR)
[2024-01-01] MEDS: cephALEXin 250 MG CAPSULE PO STA (12:45)
[2024-01-01] MEDS: PHENAZOPYRIDINE 100 MG TABLET PO STA (12:45)
[2024-01-01 13:00] VITALS: BP 120/76; O2SAT 99
== END 2024-01-01 12:53 | disposition home or self-care (01) ==
LOC: ED 10:52
DX: R30.0 Dysuria (principal); Z87.891 Personal history of nicotine dependence
CPT/HCPCS: 51798; 81003; 99283; A9270; 81001; 87086